=== PATIENT | female | born 1990 | race African-American/Black ===

== ENCOUNTER 2025-01-22 08:11 | Emergency (ER) | payer OTHER, SELFPAY ==
[2025-01-22] VITALS (10 sets, daily range): BP systolic 82–122; BP diastolic 49–74; PULSE 62–80; BMI 37.5
--- NOTE | 2025-01-22 08:34 | ED.GENMED ---
History of Present Illness
General
Chief Complaint: Fainting/Passed Out
Time Seen by Provider: 01/22/25 08:15
History of Present Illness
History of Present Illness:
SEE dmm
Phy Exam
Physical Exam
Physical Exam:
SEE mdm
Course
Orders/Labs/Results
Orders:
Orders
01/22/25 08:23
Electrocardiogram (*1) Urgent
Reason for Study: Chest Pain
EKG- Treatment ONCE
01/22/25 08:30
CMP [Comprehensive Metabolic Panel] Urgent
Complete Blood Count/With Diff Urgent
HCG, Serum Qualitative Screen Urgent
Comment: ADD ON
Troponin I Urgent
01/22/25 08:32
Add On- LAB Urgent
Tests Added?: hcg serum qual
Orthostatic VS- Treatment ONCE
0.9% Sodium Chloride 500 ml [Nss] 500 ml IV BOLUS
01/22/25 08:41
D-Dimer Urgent
01/22/25 09:21
CT Chest PE Study Urgent
Comment:
Reason For Exam: syncope, chest tightness, elevated d dimer
01/22/25 10:47
EKG- Treatment ONCE
01/22/25 11:40
Troponin I Urgent
01/22/25 12:00
Electrocardiogram (*1) Urgent
Reason for Study: Chest Pain
Abnormal Lab Results
01/22/25 01/22/25
08:30 08:41
RBC 3.95 L 10^6/uL
(4.20-5.40)
Hgb 9.8 L g/dL
(12.0-16.0)
Hct 30.8 L %
(37.0-47.0)
MCV 78.0 L fL
(81.0-99.0)
MCH 24.8 L pg
(27.0-31.0)
MCHC 31.8 L g/dL
(33.0-37.0)
RDW 16.8 H %
(11.5-14.5)
MPV 11.5 H fL
(7.4-10.4)
D-Dimer 0.92 H ug/mlFEU
(0.00-0.50)
Chloride 109 H mmol/L
(98-107)
Glucose 125 H mg/dl
(70-99)
Calcium 8.0 L mg/dl
(8.4-10.2)
Total Protein 6.2 L g/dl
(6.3-8.2)
01/22/25 08:30
01/22/25 08:30
Vital Signs
Initial and Last Documented VS:
Initial Vital Signs
Temp Pulse Resp BP Pulse Ox
36.8 C 75 18 120/60 97
01/22/25 08:13 01/22/25 08:13 01/22/25 08:13 01/22/25 08:13 01/22/25 08:13
Last Documented Vital Signs
Temp Pulse Resp BP Pulse Ox
36.8 C 67 20 110/55 100
01/22/25 08:13 01/22/25 12:15 01/22/25 10:06 01/22/25 12:00 01/22/25 12:15
MDM/Problems Addressed
MDM/Problems Addressed:
Note:
CHIEF COMPLAINT(S)
- Syncope, described as 'passing out.'
HISTORY OF PRESENT ILLNESS
The patient is a 34-year-old female who presents after experiencing syncope. The patient reported feeling a weight on her chest and dizziness before intending to use the restroom. After voiding, she experienced the sensation again, felt
light-headed, leaned against the door, and subsequently lost consciousness, falling onto the toilet but not off. Upon regaining consciousness, she felt dizzy, light-headed, and experienced paraesthesias in her hands and symptoms of nausea but did
not vomit. She requested help from her to call emergency services. The patient denies any prior episodes of syncope, chest pain, shortness of breath, or current abdominal pain. Nausea was present but she denies vomiting, and she feels
fatigued and light-headed. There was no diarrhea at the time, but she generally experiences loose stools. The patient describes being tired and has a slight lingering feeling of light-headedness without vertigo
PAST MEDICAL AND SURGICAL HISTORY
- History of duodenal switch surgery.
CHRONIC MEDICAL CONDITIONS SIGNIFICANTLY AFFECTING CARE
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
REVIEW OF SYSTEMS
- General: Fatigue, weakness.
- Cardiovascular: No chest pain reported.
- Respiratory: Denies shortness of breath.
- Gastrointestinal: Nausea, previous episodes of loose stools but currently no diarrhea.
- Neurological: Light-headedness, no room-spinning dizziness.
- Musculoskeletal: Reports lingering numbers in hands but no significant muscle pain.
PHYSICAL EXAM
- Nursing notes reviewed and vital signs reviewed.
PLAN
- Conduct blood work to evaluate for anemia, electrolyte imbalances, and vitamin B12 levels.
- Ensure no current anemia or deficiencies that could be contributing to symptoms.
DIFFERENTIAL DIAGNOSIS
The Differential Diagnosis includes, in no particular order and is not limited to:
1. Orthostatic hypotension
2. Vasovagal syncope
3. Hypoglycemia
4. Anemia
5. Electrolyte imbalance
6. Cardiac arrhythmias
7. Post-gastric surgery malabsorption issues
8. Dehydration
9. Neurological causes of syncope
10. Anxiety or panic-related episodes
34-year-old female, anemia, does not take her meds
Gastric bypass
Here with syncope after having some chest tightness and abdominal pain in the sense to move her bowels. Patient did move her bowels and then got up and felt lightheaded with a little bit of chest heaviness and then passed out ultimately. She had
no injurieES she now feels symptom-free other than feeling mild fatigue. Her EKG is nonischemic but she does have a.
Biphasic T wave in V2 that I think is lead placement.
Plan was a D-dimer, troponin, CBC, chemistry, make sure she is not too anemic
But likely a provoked vasovagal syncope
01/22/25 - 11:04
. Possibility of vasovagal syncope discussed due to stimulation from bowel movement, leading to a drop in blood pressure. Additional cardiac enzyme test planned to rule out myocardial stress or heart attack given the chest discomfort, although
initial blood test results were normal. Scheduled re-evaluation of cardiac markers set for one hour from now.
01/22/25 - 12:36
The patients second EKG was good, and the second troponin test was negative, allowing for discharge. The patient is advised to take iron supplements at least twice a day and confirm they have iron pills at home. Vitamin B12 supplementation is also
recommended. The patient is likely experiencing symptoms due to reduced blood volume. Staying hydrated and monitoring for any changes such as passing out or worsening chest pain is advised, with instructions to return if symptoms intensify. A work
note was provided, and the patient is instructed to rest at home.
*Pulse Oximetry
SaO2: 97
Oxygen Mode of Delivery: Room air
Patient hypoxic: no
*Critical Care Note
Total Time (30-74mins, 75-104mins- exclusive of procedures): Not Applicable
ED Attending Note
-
Portions of this chart may have been created with voice recognition software.� Occasional wrong word or��sound alike� substitutions may have occurred due to the inherent limitations of voice recognition software.
Discharge Plan
Departure
Patient Disposition: Home (Routine Discharge)
Date of Disposition: 01/22/25
Time of Disposition: 12:32
Patient with high blood pressure during this ER visit?: No
Condition: Fair
Covid-19: Not Applicable
Discharge Problem:
Anemia, Syncope
Instructions: Syncope (Fainting) (DC), Anemia in adults, possibly from low iron - ED (DC)
Prescriptions:
New
ferrous sulfate 325 mg (65 mg iron) tablet
325 mg PO BID Qty: 60 0RF
Referrals:
Reese Lopez MD [Family Provider] - Follow up in 5-7 days
Stand Alone Forms: Return to Work
Activity Restrictions/Additional Instructions:
YOU DO HAVE LOW HEMOGLOBIN (ANEMIA) WHICH COULD BE FROM LOW IRON/VITAMINS
MAKE SURE TO TAKE IRON SUPPLEMENTS AND YOUR B12
YOUR WORK UP HERE WAS NEGATIVE FOR HEART ATTACK, BLOOD CLOTS, ETC
MAKE SURE TO TAKE IT EASY TODAY, EAT WELL, STAY HYDRATED
FOLLOW UP WITH YOUR DOCTOR NEXT WEEK
RETURN FOR: WORSENING CHEST PAIN, SHORTNESS OF BREAHT, REPEATED PASSING OUT EPISODES OR ANY CONCERNS.
Interventions
Interventions:
*Risk Screen - Suicide Last Done: 01/22/25 08:13
*General Assessment Last Done: 01/22/25 08:13
*Neglect/Abuse Screening Last Done: 01/22/25 08:13
*ED- Fall Risk Assessment Last Done: 01/22/25 08:13
*ED COVID-19 Vaccine History Last Done: 01/22/25 08:13
*ED Influenza Vaccine History Last Done: 01/22/25 08:13
*Nursing Disposition Last Done: 01/22/25 12:41
ED- Cardiac Assessment Last Done: 01/22/25 08:13
ED- Neurological Assessment Last Done: 01/22/25 08:13
Discharge Date and Time
Discharge Date/Time: 01/22/25 12:41
Print Language: [email or web address]
[2025-01-22 08:38] LABS: Hematocrit 30.8 % (37.0-47.0); Hemoglobin 9.8 g/dL (12.0-16.0); Mean Corp Hgb Conc. 31.8 g/dL (33.0-37.0); Mean Corpuscular Volume 78.0 fL (81.0-99.0); Nucleated Red Blood Cells % 0 %; Platelet Count 267 10^3/uL (130-400); Red Cell Dist. Width 16.8 % (11.5-14.5)
[2025-01-22] MEDS: NSS 500 IV (08:40)
[2025-01-22 08:53] LABS: ALT (SGPT) 16 U/L (0-35); AST (SGOT) 19 U/L (14-36); Albumin 3.7 g/dl (3.5-5.0); Alkaline Phosphatase 62 U/L (38-126); Blood Urea Nitrogen 7 mg/dl (7-17); Calcium 8.0 mg/dl (8.4-10.2); Carbon Dioxide 25 mmol/L (22-30); Chloride 109 mmol/L (98-107); Estimated Creatinine Clearance > 125 ml/min; Glucose 125 mg/dl (70-99); Potassium 3.6 mmol/L (3.5-5.1); Sodium 139 mmol/L (135-145); Total Protein 6.2 g/dl (6.3-8.2); eGFR > 60.00
[2025-01-22 09:04] LABS: Troponin I 0.013 ng/ml
[2025-01-22 09:07] LABS: D-Dimer 0.92 ug/mlFEU (0.00-0.50)
[2025-01-22 09:29] LABS: HCG, Serum Qualitative Screen Negative
[2025-01-22 12:15] LABS: Troponin I 0.015 ng/ml
== END 2025-01-22 12:41 | disposition home or self-care (01) ==
LOC: EMR 08:11
PROVIDERS: Physician Assistant; EMERGENCY PHYSICIAN Emergency Medicine; FAMILY PHYSICIAN Family Medicine
DX: D64.9 Anemia, unspecified (principal); R55 Syncope and collapse; Z91.148 Patient's other noncompliance with medication regimen for other reason; Z98.84 Bariatric surgery status
CPT/HCPCS: 99284; 71275; 80053; 84484; 84703; 85025; 85379; 93005; Q9967